=== PATIENT | female | born 1990 | race Asian ===

== ENCOUNTER 2021-02-27 00:30 | Inpatient (IN) ==
[2021-02-27] MEDS ORDERED: Buffered Lidocaine 1% SYRIN 1 ml INTRADERM ONE (01:33)
[2021-02-27] MEDS ORDERED: Lactated Ringers 1000 ml BAG 1,000 ML IV ONE ×2 (01:33→05:47)
[2021-02-27 04:29] LABS: ABS Lymphocytes 1.1 10^3/ul (1.0-4.8); ABS Monocytes 0.4 10^3/ul (0-0.8); ABS Neutrophils 4.8 10^3/ul (1.5-7.7); Eosinophil % 0.4 %; Hematocrit 39 % (35-47); Hemoglobin 12.7 g/dL (12.0-16.0); Lymphocyte % 17.9 %; Mean Corpuscular HGB Conc 33 g/dL (31-36); Mean Corpuscular Hemoglobin 34 pg (27-31); Mean Corpuscular Volume 103 fL (80-97); Mean Platelet Volume 8.4 fL (7.4-10.4); Nucleated Red Blood Cells % 0.1; Platelet Count 187 10^3/uL (150-450); Red Blood Count 3.78 10^6 /uL (3.70-4.87); Red Cell Distribution Width 14 % (10-15); White Blood Count 6.4 10^3/uL (3.5-10.8)
[2021-02-27 04:44] LABS: Urine Benzodiazepine Screen None Detected (None Detect); Urine Cannabinoids Screen None Detected (None Detect); Urine Opiates Screen None Detected (None Detect)
[2021-02-27] MEDS ORDERED: OBEPIDURAL 250 ML EPIDURAL ONE (04:56)
[2021-02-27] MEDS ORDERED: Phenylephrine 40 mcg/mL 10mL (400mcg) SYRINGE IV PUSH PRN (05:47)
[2021-02-27] MEDS ORDERED: EPHEDrine (Pressors) 50 MG/ML VIAL IV PUSH PRN (05:47)
[2021-02-27] MEDS: Lactated Ringers 1000 ml BAG 1,000 ML IV SCH ×3 (05:51→18:43)
[2021-02-27] MEDS ORDERED: OBEPIDURAL 250 ML EPIDURAL SCH (06:00)
[2021-02-27] MEDS ORDERED: Lactated Ringers 1000 ml BAG 1,000 ML IV SCH ×2 (06:00→21:00)
[2021-02-27 06:19] LABS: Urine Bacteria Absent (Absent); Urine White Blood Cell Absent (Absent)
[2021-02-27 06:23] LABS: Urine Red Blood Cell 1+(3-5/hpf) (Absent)
[2021-02-27 06:27] LABS: Urine Appearance Clear; Urine Color Straw; Urine Ketones 2+ (Negative); Urine Urobilinogen Negative (Negative); Urine pH 6 (5-9)
[2021-02-27 06:28] LABS: Urine Bilirubin Negative (Negative); Urine Blood 1+ (Negative); Urine Glucose Negative (Negative); Urine Nitrite Negative (Negative); Urine Protein Negative (Negative)
[2021-02-27] MEDS ORDERED: Oxytocin in LR 20 UNITS/1,000 ML BAG IVPB SCH ×2 (12:00→21:00)
[2021-02-27] MEDS ORDERED: Glycerin ADULT 2.4 gm SUPP PR PRN (20:12)
[2021-02-27 20:43] LABS: ABS Lymphocytes 0.5 10^3/ul (1.0-4.8); ABS Monocytes 0.7 10^3/ul (0-0.8); ABS Neutrophils 13.1 10^3/ul (1.5-7.7); Hematocrit 31 % (35-47); Hemoglobin 10.8 g/dL (12.0-16.0); Lymphocyte % 3.5 %; Mean Corpuscular HGB Conc 35 g/dL (31-36); Mean Corpuscular Hemoglobin 34 pg (27-31); Mean Corpuscular Volume 96 fL (80-97); Mean Platelet Volume 8.7 fL (7.4-10.4); Platelet Count 178 10^3/uL (150-450); Red Blood Count 3.24 10^6 /uL (3.70-4.87); Red Cell Distribution Width 13 % (10-15); White Blood Count 14.4 10^3/uL (3.5-10.8)
[2021-02-27 20:45] LABS: Platelet Count 178 10^3/ul (150-450)
[2021-02-27 20:54] LABS: Fibrinogen 431.2 mg/dL (110.8-404.3); INR 0.95 (0.86-1.15)
[2021-02-27 21:28] LABS: Schistocytes ABSENT
[2021-02-27 22:01] LABS: Urine Appearance Cloudy; Urine Bilirubin Negative (Negative); Urine Blood 3+ (Negative); Urine Color Yellow; Urine Glucose 1+(50 mg/dL) (Negative); Urine Ketones 2+ (Negative); Urine Nitrite Negative (Negative); Urine Protein 1+(30 mg/dL) (Negative); Urine Urobilinogen Negative (Negative)
[2021-02-27 22:08] LABS: Urine Bacteria Absent (Absent); Urine Red Blood Cell 3+(>10/hpf) (Absent); Urine Squamous Epithelial Cell Present (Absent); Urine White Blood Cell 3+(>20/hpf) (Absent)
[2021-02-28] MEDS: Witch Hazel PAD JAR TOPICAL PRN (04:21)
[2021-02-28] MEDS: Dibucaine 1% OINT 28.35 GM TUBE PR PRN (04:21)
[2021-02-28] MEDS ORDERED: Lidocaine 1% VIAL 10 MG/ML VIAL ONE (05:44)
[2021-02-28 06:26] LABS: ABS Lymphocytes 0.9 10^3/ul (1.0-4.8); ABS Monocytes 0.6 10^3/ul (0-0.8); ABS Neutrophils 10.7 10^3/ul (1.5-7.7); Eosinophil % 0.2 %; Hematocrit 24 % (35-47); Hemoglobin 8.6 g/dL (12.0-16.0); Lymphocyte % 7.2 %; Mean Corpuscular HGB Conc 35 g/dL (31-36); Mean Corpuscular Hemoglobin 34 pg (27-31); Mean Corpuscular Volume 97 fL (80-97); Mean Platelet Volume 8.3 fL (7.4-10.4); Platelet Count 166 10^3/uL (150-450); Red Blood Count 2.52 10^6 /uL (3.70-4.87); Red Cell Distribution Width 13 % (10-15); White Blood Count 12.2 10^3/uL (3.5-10.8)
[2021-02-28] MEDS ORDERED: Measles, Mumps,Rubella VACC 0.5 ML/VIAL SUBCUT ONE (09:00)
[2021-03-01] MEDS: Dibucaine 1% OINT 28.35 GM TUBE PR PRN (11:30)
[2021-03-01] MEDS: Witch Hazel PAD JAR TOPICAL PRN (11:30)
[2021-03-01 20:11] VITALS: BP 113/66
== END 2021-03-01 21:16 | disposition home or self-care (01) | DRG 560 ==
LOC: MCHOBOUT 00:30 → MCHOB 00:52
PROVIDERS: ADMIT Obstetrics & Gynecology; ATTEND Obstetrics & Gynecology